=== PATIENT | female | born 2000 | race Caucasian/White ===

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

== ENCOUNTER → 2022-04-29 | Outpatient (CLI) | payer OTHER ==
[2022-04-29 11:29] LABS: HEMATOCRIT 43.3 % (37.0-47.0); MEAN CORPUSCULAR HGB 28.5 pg (27.0-31.0); MEAN CORPUSCULAR HGB CONC 35.6 g/dl (33.0-37.0); MEAN PLATELET VOLUME 9.6 fl (9.6-12.3); RED BLOOD COUNT 5.41 10*6/uL (4.10-5.10); RED CELL DISTRI WIDTH 12.7 % (0-14.5)
[2022-04-29 11:49] LABS: ALKALINE PHOSPHATASE 156 U/L (45-117); BUN 13 mg/dl (7-24); CHLORIDE 110 mmol/L (98-107); CHOLESTEROL 152 mg/dL (<200); CREATININE 0.87 mg/dL (0.55-1.02); LDL CHOLESTEROL 97 mg/dL (9-159); POTASSIUM 3.6 mmol/L (3.5-5.1); SGOT/AST 16 IU/L (3-35); SGPT/ALT 30 U/L (12-78); SODIUM 142 mmol/L (136-145); TOTAL PROTEIN 8.2 gm/dL (6.4-8.2); TRIGLYCERIDES 43 mg/dl (<150)
[2022-04-29 11:55] LABS: FREE T4 1.16 ng/dl (0.76-1.46)
[2022-04-29 12:02] LABS: VITAMIN D, 25-HYDROXY 18.5 ng/mL (30-100)
== END | disposition home or self-care (01) ==
LOC: LAB 10:57
PROVIDERS: ATTEND Family Medicine
DX: Z00.00 Encounter for general adult medical examination without abnormal findings (principal); E55.9 Vitamin D deficiency, unspecified; R53.83 Other fatigue; L65.9 Nonscarring hair loss, unspecified

== ENCOUNTER → 2022-06-20 | Outpatient (CLI) | payer OTHER | END | disposition home or self-care (01) | LOC: LAB 13:27 | PROVIDERS: ATTEND Nurse Practitioner Women's Health | DX: N64.52 Nipple discharge (principal); R53.83 Other fatigue ==

== ENCOUNTER → 2022-07-02 | Outpatient (CLI) | payer OTHER | END | disposition home or self-care (01) | LOC: US 02:46 | PROVIDERS: ATTEND Nurse Practitioner Women's Health | DX: N64.4 Mastodynia (principal); N64.52 Nipple discharge ==

== ENCOUNTER → 2023-11-24 | Day surgery (SDC) | payer OTHER ==
[~2023-11-24] VITALS: Ht 154.9 cm; Wt 44.5 kg
[~2023-11-24] MED LIST changes: +Bupivacaine Hydrochloride/Ep2 30 ML VIAL ONE; +Dexamethasone Sodium Phospha 20 MG/5 ML VIAL IV ONE; +Lactated Ringer's Solution 1,000 ML IV ONE; +Lidocaine Hydrochloride 2% 10 ML AMP IM ONE; +Midazolam Hydrochloride 2 MG/2 ML VIAL IV ONE; +Ondansetron Hydrochloride 4 MG/2 ML VIAL IV ONE; +PROPOFOL 200 MG/20 ML VIAL IV ONE; +ROCURONIUM BROMIDE 50 MG/5 ML SYRINGE IV ONE; +SEVOFLURANE 250 ML BOT INH ONE
[2023-11-24 11:39] VITALS: BP 114/73
[2023-11-24 14:21] VITALS: BP 127/72
[2023-11-24 14:36] VITALS: BP 121/71
[2023-11-24 14:51] VITALS: BP 118/68
[2023-11-24 15:06] VITALS: BP 121/74
[2023-11-24 15:18] VITALS: BP 115/57
== END | disposition home or self-care (01) ==
LOC: SDC 11-20 11:00
PROVIDERS: ATTEND Dentist General Practice
DX: K01.1 Impacted teeth (principal); F41.9 Anxiety disorder, unspecified; F90.9 Attention-deficit hyperactivity disorder, unspecified type; F17.210 Nicotine dependence, cigarettes, uncomplicated

== ENCOUNTER → 2024-06-14 | Outpatient (CLI) | payer OTHER ==
[~2024-06-14] MED LIST changes: -Bupivacaine Hydrochloride/Ep2 30 ML VIAL ONE; -Dexamethasone Sodium Phospha 20 MG/5 ML VIAL IV ONE; -Lactated Ringer's Solution 1,000 ML IV ONE; -Lidocaine Hydrochloride 2% 10 ML AMP IM ONE; -Midazolam Hydrochloride 2 MG/2 ML VIAL IV ONE; -Ondansetron Hydrochloride 4 MG/2 ML VIAL IV ONE; -PROPOFOL 200 MG/20 ML VIAL IV ONE; -ROCURONIUM BROMIDE 50 MG/5 ML SYRINGE IV ONE; -SEVOFLURANE 250 ML BOT INH ONE
== END | disposition home or self-care (01) ==
LOC: RAD 13:40
PROVIDERS: ATTEND Family Medicine
DX: R05.9 Cough, unspecified (principal); R07.9 Chest pain, unspecified; R04.2 Hemoptysis; R06.02 Shortness of breath

== ENCOUNTER → 2024-09-07 | Outpatient (CLI) | payer OTHER | END | disposition home or self-care (01) | LOC: US 08:59 | PROVIDERS: ATTEND Nurse Practitioner Women's Health | DX: N63.15 Unspecified lump in the right breast, overlapping quadrants (principal); R92.323 Mammographic fibroglandular density, bilateral breasts; N64.4 Mastodynia ==

== ENCOUNTER → 2025-03-07 | Outpatient (CLI) | payer OTHER | END | disposition home or self-care (01) | LOC: RAD 13:35 | PROVIDERS: ATTEND Family Medicine | DX: M25.562 Pain in left knee (principal) ==

== ENCOUNTER → 2025-05-03 | Outpatient (CLI) | payer OTHER ==
[2025-05-03 10:59] LABS: MEAN CELL VOLUME 83.8 fl (81.0-99.0); MEAN CORPUSCULAR HGB 28.7 pg (27.0-31.0); MEAN PLATELET VOLUME 9.7 fl (9.6-12.3); NUCLEATED RED BLOOD CELL 0.0 % (0.0-0.0); NUCLEATED RED BLOOD CELL 0.0 10*3/uL (0.0-0.0); PLATELET COUNT AUTOMATED 271.0 10*3/uL (130-400); RED CELL DISTRI WIDTH 12.1 % (0-14.5)
[2025-05-03 11:26] LABS: BUN 8 mg/dl (9-23); LDL CHOLESTEROL 75 mg/dL (9-159); SGPT/ALT 16 U/L (5-49)
== END | disposition home or self-care (01) ==
LOC: LAB 10:42
PROVIDERS: ATTEND Family Medicine
DX: R06.02 Shortness of breath (principal)

== ENCOUNTER 2025-05-04 17:46 | Observation (INO) | payer OTHER ==
[~2025-05-04] VITALS: Ht 157.4 cm; Wt 41.3 kg
[2025-05-04 17:55] VITALS: BP 119/78
[2025-05-04] MEDS ORDERED: SODIUM CHLORIDE 0.9% 1,000 ML IV ONE (18:05)
[2025-05-04 18:29] LABS: BASO # 0.1 10*3/uL (0.0-0.1); BASO % 0.3 % (0.0-1.0); EOS # 0.2 10*3/uL (0.0-0.4); EOS % 1.3 % (1.0-4.0); MEAN CELL VOLUME 84.0 fl (81.0-99.0); MEAN CORPUSCULAR HGB 28.6 pg (27.0-31.0); MEAN PLATELET VOLUME 9.9 fl (9.6-12.3); MONO # 0.9 10*3/uL (0.1-1.0); MONO % 6.2 % (3.0-9.0); NEUT # 11.6 10*3/uL (2.3-7.9); NEUT % 80.8 % (47.0-73.0); NUCLEATED RED BLOOD CELL 0.0 % (0.0-0.0); NUCLEATED RED BLOOD CELL 0.0 10*3/uL (0.0-0.0); PLATELET COUNT AUTOMATED 257 10*3/uL (130-400); RED CELL DISTRI WIDTH 12.1 % (0-14.5)
[2025-05-04 18:31] LABS: BILIRUBIN 1+ (Negative); BLOOD Negative (Negative); CLARITY Cloudy (Clear); COLOR Orange (Yellow); KETONE Negative (Negative); LEUKO ESTERASE 2+ (Negative); NITRITE Positive (Negative); PH 5.0 (4.5-8.0); SPECIFIC GRAVITY 1.020 (1.001-1.030); UROBILINOGEN 1.0 E.U./dl (0.0-1.0)
[2025-05-04 18:47] LABS: BACTERIA 2+; WBC 51-100 wbc/hpf (0-5)
[2025-05-04 18:50] LABS: BUN 9 mg/dl (9-23)
[2025-05-04] MEDS ORDERED: POTASSIUM CHLORIDE 20 MEQ TAB PO ONE ×2 (19:10→21:35)
[2025-05-04] MEDS ORDERED: IOHEXOL 300 MG/ML 100 ML VIAL IV ONE (19:10)
[2025-05-04] MEDS ORDERED: ACETAMINOPHEN 325 MG TAB PO ONE (21:05)
[2025-05-04] MEDS ORDERED: Ondansetron Hydrochloride 4 MG/2 ML VIAL IV PRN (21:30)
[2025-05-04] MEDS ORDERED: Acetaminophen/Hydrocodone 5 MG/325 MG TABLET PO PRN (21:30)
[2025-05-04] MEDS ORDERED: ACETAMINOPHEN 325 MG TAB PO PRN (21:30)
[2025-05-04] MEDS ORDERED: BISACODYL 5 MG TAB PO PRN (21:30)
[2025-05-04] MEDS ORDERED: Piperacillin Sodium/Tazobact 0 ML IV SCH (21:50)
[2025-05-04 22:30] VITALS: BP 123/65
[2025-05-04] MEDS ORDERED: ACETAMINOPHEN 500 MG TAB PO PRN (23:50)
[2025-05-05] VITALS: BP 114/61
[2025-05-05] MEDS ORDERED: Piperacillin Sodium/Tazobact 4.5 GM in SODIUM CHLORIDE 0.9% 100 ML IV SCH (04:00)
[2025-05-05 08:00] VITALS: BP 99/45
[2025-05-05] MEDS ORDERED: [UNRECOGNIZED DRUG - OTHER] IV ONE (08:39)
[2025-05-05] MEDS ORDERED: TAZOBACT IV ONE (08:39)
[2025-05-05] MEDS ORDERED: PIPERACILLIN SODIUM IV ONE (08:39)
[2025-05-05 12:00] VITALS: BP 104/64
[2025-05-05] MEDS ORDERED: POTASSIUM CHLORIDE 20 MEQ TAB PO ONE (13:45)
[2025-05-05 16:00] VITALS: BP 109/50
[2025-05-05] MEDS ORDERED: Cefepime Hydrochloride 2 GM in SODIUM CHLORIDE 0.9% 50 ML IV SCH (18:00)
[2025-05-05 20:00] VITALS: BP 114/61
[2025-05-06] VITALS: BP 115/69
[2025-05-06 05:41] LABS: BUN 7 mg/dl (9-23)
[2025-05-06 06:11] LABS: BASO # 0.1 10*3/uL (0.0-0.1); BASO % 0.4 % (0.0-1.0); EOS # 1.1 10*3/uL (0.0-0.4); EOS % 7.9 % (1.0-4.0); MEAN CELL VOLUME 84.0 fl (81.0-99.0); MEAN CORPUSCULAR HGB 28.4 pg (27.0-31.0); MEAN PLATELET VOLUME 10.4 fl (9.6-12.3); MONO # 1.5 10*3/uL (0.1-1.0); MONO % 10.7 % (3.0-9.0); NEUT # 8.6 10*3/uL (2.3-7.9); NEUT % 63.0 % (47.0-73.0); NUCLEATED RED BLOOD CELL 0.0 % (0.0-0.0); NUCLEATED RED BLOOD CELL 0.0 10*3/uL (0.0-0.0); PLATELET COUNT AUTOMATED 237 10*3/uL (130-400); RED CELL DISTRI WIDTH 12.4 % (0-14.5)
[2025-05-06 08:00] VITALS: BP 108/68
[2025-05-06] MEDS ORDERED: CIPRO500 MG PO (08:19)
== END 2025-05-06 09:00 | disposition home or self-care (01) ==
LOC: ED 17:46 → EDHOLD 21:24 → 5E 21:24 → EDHOLD 21:55 → 5E 22:13
PROVIDERS: Emergency Medicine; Nurse Practitioner Family; ADMIT Internal Medicine; ATTEND Internal Medicine
DX: A41.9 Sepsis, unspecified organism (principal); E87.6 Hypokalemia; N12 Tubulo-interstitial nephritis, not specified as acute or chronic; D75.839 Thrombocytosis, unspecified; D72.829 Elevated white blood cell count, unspecified; N39.0 Urinary tract infection, site not specified; R00.0 Tachycardia, unspecified; Z79.899 Other long term (current) drug therapy